=== PATIENT | male | born 1980 | race Caucasian/White ===

== ENCOUNTER 2021-03-05 10:41 | Emergency (ER) | payer SELFPAY ==
[~2021-03-05] VITALS: Ht 175.3 cm; Wt 79.4 kg
[2021-03-05 10:52] VITALS: BP 145/101
--- NOTE | 2021-03-05 11:22 | NUR ---
PT LEFT W/OUT BEING SEEN BY ER PROVIDED.
== END 2021-03-05 11:35 | disposition left against medical advice (07) ==
LOC: ER 10:44
DX: K64.8 Other hemorrhoids (principal); F17.200 Nicotine dependence, unspecified, uncomplicated